=== PATIENT | female | born 1950 | race Caucasian/White ===

== ENCOUNTER 2018-04-05 13:13 | Inpatient (IN) ==
[2018-04-05] MEDS ORDERED: *HR* OxyCODONE/APAP 5/325 TABLET PO ONE (14:09)
--- NOTE | 2018-04-05 14:12 | Emergency Department Note ---
Disposition Clinical Impression: Fracture of hip Qualifiers: Encounter type: initial encounter Fracture type: closed Laterality: right Qualified Code(s): S72.001A - Fracture of unspecified part of neck of right femur, initial encounter for closed fracture Disposition: Admitted As Inpatient Condition: Good Time of Disposition: 20:00 Lower Extremity Injury HPI - General Chief Complaint: ED Extremity Injury, Lower Stated Complaint: R hip pain s/p fall Time Seen by Provider: 04/05/18 13:34 Source: patient Mode of arrival: EMS Limitations: no limitations Nursing Notes Reviewed: Yes Vital Signs Reviewed: Yes - History of Present Illness HPI Narrative: Patient reports a mechanical fall on her right hip while home at 10:30 AM. She also hit her head. No focal neurological signs or symptoms. No head or neck pain at this time. No chest pain or abdominal pain. Pain is worse with mov ement better with rest. pain is Sharp. Pt Subjective Complaint: hip injury Onset (ago): hour(s) Mechanism of Injury: blunt Context: fall Pain Scale: 4 - Related Data Home Medications Medication Instructions Recorded Confirmed Albuterol Sulfate [Proair Hfa] 2 puff IH Q4H PRN 01/30/16 04/05/18 Baclofen [Lioresal] 10 mg PO TID 01/30/16 04/05/18 Calcium Carb,Cit/D3/Phytostrol 1 tab PO DAILY 01/30/16 04/05/18 [Citracal D + Heart Health Tab] Cholecalciferol (D-3) [Vitamin D] 1,000 unit PO BID 01/30/16 04/05/18 Citalopram Hydrobromide [Celexa] 40 mg PO DAILY 01/30/16 04/05/18 Dalfampridine [Ampyra] 10 mg PO BID 01/30/16 04/05/18 Ibuprofen [Advil] 200 mg PO DAILY PRN 01/30/16 04/05/18 Metformin HCl [Metformin HCl ER] 500 mg PO BID 01/30/16 04/05/18 Multivitamin [Multivitamins] 1 tab PO DAILY 01/30/16 04/05/18 RX: Glimepiride [Amaryl] 4 mg PO BID 01/30/16 04/05/18 RX: Lovastatin 40 mg PO HS 01/30/16 04/05/18 RX: Propranolol HCl 80 mg PO BID 01/30/16 04/05/18 RX: Zolpidem [Ambien] 5 mg PO HS PRN 01/30/16 04/05/18 SUMAtriptan Succinate [Imitrex] 100 mg PO DAILY PRN 01/30/16 04/05/18 Allergies Allergy/AdvReac Type Severity Reaction Status Date / Time Cephalosporins Allergy Rash Verified 01/30/16 09:48 clindamycin Allergy Rash Verified 04/05/18 13:22 Penicillins Allergy Rash Verified 01/30/16 09:48 Sulfa (Sulfonamide Allergy Photosensit Verified 01/30/16 09:48 Antibiotics) ivity Constitutional: Denies: fever, chills, weakness, weight change Eyes: Denies: eye pain, eye discharge, vision change ENT ED: Denies: ear pain, throat pain, dental pain, hearing loss, epistaxis, congestion, dysphagia Cardiovascular: Denies: chest pain, palpitations, dyspnea on exertion, edema, syncope Respiratory: Denies: cough, dyspnea, wheezes, hemoptysis, stridor Gastrointestinal: Denies: abdominal pain, nausea, vomiting, diarrhea, constipation, hematemesis, melena, hematochezia Genitourinary: Denies: dysuria, frequency, hematuria, discharge Musculoskeletal: Reports: as per HPI, arthralgia. Denies: back pain, neck pain Integumentary: Denies: rash, abrasion, lesions Neurological: Denies: headache, weakness, numbness, paresthesias, confusion, abnormal gait, vertigo Psychiatric: Denies: anxiety, depression, suicidal thoughts, homicidal thoughts, auditory hallucinations, visual hallucinations Endocrine: Denies: fatigue Hematological/Lymphatic: Denies: easy bleeding, easy bruising Allergic/Immunologic: Denies: facial swelling, urticaria Past Medical History - Past Medical History Medical history: Reports: asthma, COPD Surgical history: Reports: appendectomy, hysterectomy Psychiatric history: Reports: no psych history - Social History Smoking Status: Current every day smoker Smokeless Tobacco Status: No Alcohol use: Reports: none Drug use: Reports: none Physical Exam - General Limitations: no limitations General appearance: alert - Head Head exam: atraumatic, normocephalic, normal inspection - Eye Eye exam: Present: normal appearance, PERRL, EOMI - Expanded Eye Exam Pupils: Left: reactive - ENT ENT exam: normal exam, normal oropharynx, mucous membranes moist - Expanded ENT Exam External ear exam: Present: normal external inspection Mouth exam: Present: normal external inspection Teeth exam: Present: normal inspection Throat exam: Present: normal inspection - Neck Neck exam: Present: normal inspection, full ROM, trachea midline - Chest Chest inspection: Present: normal inspection, symmetric chest wall rise - Respiratory Respiratory exam: Present: normal lung sounds bilaterally - Cardiovascular Cardiovascular exam: Present: regular rate, normal rhythm, normal heart sounds - Abdominal Exam Abdominal exam: Present: soft, Non-Tender. Absent: tenderness, distention, guarding, rebound, rigidity - Extremities Exam Extremities exam: Present: normal inspection, full ROM. Absent: tenderness, pedal edema - Expanded Upper Extremity Exam Shoulder exam: Present: normal inspection, full ROM Arm exam: Present: normal inspection, full ROM Elbow exam: Present: normal inspection, full ROM Forearm/Wrist exam: Present: normal inspection, full ROM Hand exam: Present: normal inspection, full ROM Vascular exam: Normal: capillary refill, radial pulse - Expanded Lower Extremity Exam Hip/Pelvis exam: Present: tenderness, swelling (Swelling and tenderness to the right lateral hip. Patient's leg is flexed and she is unable to straighten it. No neurovascular deficits noted in the lower extremities.) Upper leg exam: Present: normal inspection, full ROM Knee exam: Present: normal inspection, full ROM Lower leg exam: Present: normal inspection, full ROM Ankle exam: Present: normal inspection, full ROM Foot/toe exam: Present: normal inspection, full ROM Neurovascular/Tendon exam: Absent: motor deficit, sensory deficit, tendon deficit - Back Exam Back exam: Present: normal inspection, full ROM. Absent: tenderness - Neurological Exam Neurological exam: Present: alert, oriented X3 - Expanded Neurological Exam Patient oriented to: Present: person, place, time Coma Scale Eye Opening: Spontaneous Coma Scale Motor Response: Obeys Commands Coma Scale Verbal Response: Oriented Coma Scale Total: 15 - Psychiatric Psychiatric exam: Present: normal affect, normal mood - Skin Skin exam: Present: warm, dry, intact, normal color Course Vital Signs Temperature 99.0 F 04/05/18 13:15 Pulse Rate 78 04/05/18 13:15 Respiratory Rate 16 04/05/18 13:15 Blood Pressure 119/97 04/05/18 13:15 O2 Sat by Pulse Oximetry 97 04/05/18 13:15 Temperature 98.5 F 04/05/18 20:16 Pulse Rate 86 04/05/18 20:16 Respiratory Rate 12 04/05/18 20:16 Blood Pressure 119/72 04/05/18 20:16 O2 Sat by Pulse Oximetry 93 04/05/18 21:00 Oxygen Delivery Oxygen Delivery Nasal Cannula Extremity Injury, Lower - Lab Data Result diagrams: 04/05/18 14:25 04/05/18 14:25 Lab Results 04/05/18 04/05/18 04/05/18 Range/Units 14:25 14:25 16:05 WBC 23.0 H (4.3-11.1) K/mcL RBC 4.41 (3.82-4.97) M/mcL Hgb 13.6 (11.5-15.4) g/dL Hct 41.6 (35.3-44.9) % MCV 94.3 (83.0-100.0) fL MCH 30.8 (28.0-33.3) pg MCHC 32.7 (31.6-35.5) g/dL RDW 12.5 (11.5-14.5) % Plt Count 220 (140-400) K/mcL MPV 11.1 (9.4-12.4) fL Sodium 137 (136-145) mEq/L Potassium 4.1 (3.5-5.1) mEq/L Chloride 105 (98-107) mEq/L Carbon Dioxide 26 (23-29) mEq/L BUN 19 (8-23) mg/dL Creatinine 0.92 (0.60-1.20) mg/dL Est GFR ( Amer) > 60 (> 60) Est GFR (Non-Af Amer) > 60 (> 60) BUN/Creatinine Ratio 21 (6-26) Glucose 116 H (70-105) mg/dL POC Glucose (70-99) mg/dL Calculated Osmolality 287 (280-300) Calcium 10.0 (8.6-10.3) mg/dL Urine Color Yellow (Yellow) Urine Clarity Turbid A (Clear) Urine pH 5.5 (5.0-8.0) pH Units Ur Specific [place] 1.011 (1.010-1.025) Urine Protein 100 H (Neg-Trace) mg/dL Urine Glucose (UA) Normal (Normal) mg/dL Urine Ketones Negative (Negative) mg/dL Urine Blood Large H (Negative) Urine Nitrite Negative (Negative) Urine Bilirubin Negative (Negative) Urine Urobilinogen Normal (Normal) mg/dL Ur Leukocyte Esterase Large H (Negative) Urine Microscopic RBC 5-15 H (0-3) per hpf Urine Microscopic WBC TNTC H (0-3) per hpf Ur Squamous Epith Cells Many H (None-Few) per lpf Urine Bacteria Many H (None-Few) per hpf Hyaline Casts None Seen (None-Few) per lpf 04/05/18 Range/Units 17:09 WBC (4.3-11.1) K/mcL RBC (3.82-4.97) M/mcL Hgb (11.5-15.4) g/dL Hct (35.3-44.9) % MCV (83.0-100.0) fL MCH (28.0-33.3) pg MCHC (31.6-35.5) g/dL RDW (11.5-14.5) % Plt Count (140-400) K/mcL MPV (9.4-12.4) fL Sodium (136-145) mEq/L Potassium (3.5-5.1) mEq/L Chloride (98-107) mEq/L Carbon Dioxide (23-29) mEq/L BUN (8-23) mg/dL Creatinine (0.60-1.20) mg/dL Est GFR ( Amer) (> 60) Est GFR (Non-Af Amer) (> 60) BUN/Creatinine Ratio (6-26) Glucose (70-105) mg/dL POC Glucose 101 H (70-99) mg/dL Calculated Osmolality (280-300) Calcium (8.6-10.3) mg/dL Urine Color (Yellow) Urine Clarity (Clear) Urine pH (5.0-8.0) pH Units Ur Specific [place] (1.010-1.025) Urine Protein (Neg-Trace) mg/dL Urine Glucose (UA) (Normal) mg/dL Urine Ketones (Negative) mg/dL Urine Blood (Negative) Urine Nitrite (Negative) Urine Bilirubin (Negative) Urine Urobilinogen (Normal) mg/dL Ur Leukocyte Esterase (Negative) Urine Microscopic RBC (0-3) per hpf Urine Microscopic WBC (0-3) per hpf Ur Squamous Epith Cells (None-Few) per lpf Urine Bacteria (None-Few) per hpf Hyaline Casts (None-Few) per lpf
[2018-04-05 14:43] LABS: Hematocrit 41.6 % (35.3-44.9); Hemoglobin 13.6 g/dL (11.5-15.4); Mean Corpuscular HGB Conc 32.7 g/dL (31.6-35.5); Mean Corpuscular Hemoglobin 30.8 pg (28.0-33.3); Mean Corpuscular Volume 94.3 fL (83.0-100.0); Mean Platelet Volume 11.1 fL (9.4-12.4); Platelet Count 220 K/mcL (140-400); Red Blood Count 4.41 M/mcL (3.82-4.97); Red Cell Distribution Width 12.5 % (11.5-14.5)
[2018-04-05 14:58] LABS: BUN/Creatinine Ratio 21 (6-26); Blood Urea Nitrogen 19 mg/dL (8-23); Carbon Dioxide 26 mEq/L (23-29); Chloride 105 mEq/L (98-107); Glucose 116 mg/dL (70-105); Osmolality,Calculated 287 (280-300); Potassium 4.1 mEq/L (3.5-5.1); Sodium 137 mEq/L (136-145); eGFR For Non-African Americans > 60 (> 60)
[2018-04-05 16:16] LABS: Bilirubin,Urine Negative (Negative); Blood,Urine Large (Negative); Clarity,Urine Turbid (Clear); Color,Urine Yellow (Yellow); Glucose,Urine (UA) Normal (Normal); Ketones,Urine Negative (Negative); Leukocyte Esterase,Urine Large (Negative); Nitrite,Urine Negative (Negative); PH,Urine 5.5 pH Units (5.0-8.0); Protein,Urine 100 mg/dL (Neg-Trace); Specific Gravity,Urine 1.011 (1.010-1.025); Urobilinogen,Urine Normal (Normal)
[2018-04-05 16:17] LABS: Bacteria,Urine Many per hpf (None-Few); Hyaline Casts,Urine None Seen per lpf (None-Few); Squamous Epithelial Cell,Urine Many per lpf (None-Few); WBC,Urine TNTC per hpf (0-3)
--- NOTE | 2018-04-05 17:22 | Orthopedic Consult Note ---
Date of Encounter: 04/05/18 Time of Encounter: 17:12 History of Present Illness Chief complaint: Right hip pain HPI: Ms. Nunez is a 67 year old female who sustained an injury to her right hip in a mechanical fall at her home today. Patient had immediate right hip pain and was unable to weight-bear. She was brought to the emergency room and [facility] x-rays taken revealed evidence of a right femoral neck fracture. She admitted for further evaluation and management. Patient denies any other injuries. I reviewed the patient's medical record. Past medical history is significant for multiple sclerosis. Patient has multiple drug allergies. Examination reveals a pleasant 67-year-old woman in minor distress while lying in the hospital bed. Right lower extremity is shortened and externally rotated. Pain is elicited with any attempts at examination. Laboratory data includes a hemoglobin of 13.6 with a white blood cell count of 23. Urine is turbid with positive leukocyte esterase and many bacteria. Patient has a vaginal prolapse with difficulty urinating and does require catheterization frequently. X-rays reveals a displaced right femoral neck fracture in the subcapital region. Impression: Displaced right femoral neck fracture Recommendation: Discussed with the patient and I recommend surgical intervention in the form of a cemented hemiarthroplasty of the right hip. This would eliminate any potential for limited ambulation, delayed healing or nonunion and possibility of an avascular necrosis process. These were all be risks of attempting to save the hip with reduction and fixation. In light of the patient's neuromuscular disease this is also better option as would allow her to begin immediate full weightbearing ambulation though she would be required to maintain hip precautions for a period of time. Appears the patient has a chronic urinary tract infection, would recommend start of empiric antibiotics per the hospitalists. We will utilize vancomycin for surgical prophylaxis. Discussed the surgical procedure as well as potential risks and complications at length with the patient and family. They were all in agreement with the proposed plan. Have scheduled her for surgery tomorrow. Thank you very much for allowing me to seen care for Mrs. Nunez. Sincerely, Raymon Amin,DO Past Med Surg Social Fam HX - Past Medical History Medical history: asthma, COPD Additional medical history: Liver Disease Psychiatric history: no psych history - Past Surgical History Surgical History: appendectomy, hysterectomy Additional surgical history: decortication of lungs, ovarian cyst, lymph node removal, D&C - Social History Smoking Status: Current every day smoker Smokeless Tobacco Status: No Alcohol use: none Drug use: none Medications and Allergies Albuterol Sulfate [Proair Hfa] 2 puff IH Q4H PRN 01/30/16 [History] Baclofen [Lioresal] 10 mg PO TID 01/30/16 [History] Calcium Carb,Cit/D3/Phytostrol [Citracal D + Heart Health Tab] 1 tab PO DAILY 01/30/16 [History] Cholecalciferol (D-3) [Vitamin D] 1,000 unit PO BID 01/30/16 [History] Citalopram Hydrobromide [Celexa] 40 mg PO DAILY 01/30/16 [History] Dalfampridine [Ampyra] 10 mg PO BID 01/30/16 [History] Glimepiride [Amaryl] 4 mg PO BID 01/30/16 [History] Ibuprofen [Advil] 200 mg PO DAILY PRN 01/30/16 [History] Lovastatin 40 mg PO HS 01/30/16 [History] Metformin HCl [Metformin HCl ER] 500 mg PO BID 01/30/16 [History] Multivitamin [Multivitamins] 1 tab PO DAILY 01/30/16 [History] Propranolol HCl 80 mg PO BID 01/30/16 [History] SUMAtriptan Succinate [Imitrex] 100 mg PO DAILY PRN 01/30/16 [History] Zolpidem [Ambien] 5 mg PO HS PRN 01/30/16 [History] Allergy/AdvReac Type Severity Reaction Status Date / Time Cephalosporins Allergy Rash Verified 01/30/16 09:48 clindamycin Allergy Rash Verified 04/05/18 13:22 Penicillins Allergy Rash Verified 01/30/16 09:48 Sulfa (Sulfonamide Allergy Photosensit Verified 01/30/16 09:48 Antibiotics) ivity All Systems Reviewed: The remainder of the systems were reviewed and are negative Physical Exam - Constitutional Vitals: Temp Pulse Resp BP Pulse Ox 98.8 F 85 17 132/76 90 04/05/18 16:56 04/05/18 16:56 04/05/18 16:56 04/05/18 16:56 04/05/18 16:56 Results - Labs Result Diagrams: 04/05/18 14:25 04/05/18 14:25 Labs: Abnormal lab results WBC 23.0 K/mcL (4.3-11.1) H 04/05/18 14:25 Glucose 116 mg/dL (70-105) H 04/05/18 14:25 Urine Clarity Turbid (Clear) A 04/05/18 16:05 Urine Protein 100 mg/dL (Neg-Trace) H 04/05/18 16:05 Urine Blood Large (Negative) H 04/05/18 16:05 Ur Leukocyte Esterase Large (Negative) H 04/05/18 16:05 Urine Microscopic RBC 5-15 per hpf (0-3) H 04/05/18 16:05 Urine Microscopic WBC TNTC per hpf (0-3) H 04/05/18 16:05 Ur Squamous Epith Cells Many per lpf (None-Few) H 04/05/18 16:05 Urine Bacteria Many per hpf (None-Few) H 04/05/18 16:05 H & H 04/05/18 Range/Units 14:25 Hgb 13.6 (11.5-15.4) g/dL Hct 41.6 (35.3-44.9) % All other labs normal. - Diagnostic results Hip AP/Lateral x-ray: image reviewed Consult Discharge Plan - Plan Referrals: Pieter Moore MD [Primary Care Provider] -
[2018-04-05] MEDS ORDERED: Ketorolac 30 MG/ML VIAL IVP ONE (17:38)
[2018-04-05] MEDS ORDERED: *HR* HYDROcodone/Acet 5/325 mg TABLET PO PRN (17:39)
--- NOTE | 2018-04-05 18:10 | Internal Med History&Physical ---
Date of Encounter: 04/05/18 Time of Encounter: 17:00 Internal Medicine - H&P: HPI Chief complaint: Right hip pain Admitted From: Home Plans for Post Hospital Care: Home History of present illness: Patient is a 67-year-old female with past medical history significant for diabetes, hyperlipidemia and mood disorder and multiple sclerosis with frequent falls who presents to the ER on 04/05/18 after right hip pain after mechanical fall. She reports after getting up this morning and walking to get her glasses she turned to her right and lost her balance falling on her right hip with immediate sharp pain. Patient was unable to ambulate and family assisting her to car to bring her into the ER for evaluation. In the ER, imaging showed subcapital right femoral neck fracture appears to be pathologic, concerning for metastatic disease; head CT with no acute intracranial abnormalities. Patient was also noted to have significant leukocytosis on labs with WBC of 23; urinalysis noted to have large leukoesterase , white blood cells too numerous to count and many bacteria. Patient will be admitted to the medical surgical floor for surgical repair of right femoral neck fracture in addition to management for urinary tract infe ction Past Med Surg Social Fam HX - Past Medical History Medical history: asthma, COPD Additional medical history: Liver Disease Psychiatric history: no psych history - Past Surgical History Surgical History: appendectomy, hysterectomy Additional surgical history: decortication of lungs, ovarian cyst, lymph node removal, D&C - Social History Smoking Status: Current every day smoker Packs per day: 1 Smokeless Tobacco Status: No Alcohol use: none Drug use: none - Family History Mother Hx Family Cancer: Yes Father Hx Family Cardiac Disorders: Yes Hx Family Cancer: Yes - Additional Family History Additional family history: Reviewed and noncontributory Internal Medicine - H&P: Meds Albuterol Sulfate [Proair Hfa] 2 puff IH Q4H PRN 01/30/16 [History] Baclofen [Lioresal] 10 mg PO TID 01/30/16 [History] Calcium Carb,Cit/D3/Phytostrol [Citracal D + Heart Health Tab] 1 tab PO DAILY 01/30/16 [History] Cholecalciferol (D-3) [Vitamin D] 1,000 unit PO BID 01/30/16 [History] Citalopram Hydrobromide [Celexa] 40 mg PO DAILY 01/30/16 [History] Dalfampridine [Ampyra] 10 mg PO BID 01/30/16 [History] Glimepiride [Amaryl] 4 mg PO BID 01/30/16 [History] Ibuprofen [Advil] 200 mg PO DAILY PRN 01/30/16 [History] Lovastatin 40 mg PO HS 01/30/16 [History] Metformin HCl [Metformin HCl ER] 500 mg PO BID 01/30/16 [History] Multivitamin [Multivitamins] 1 tab PO DAILY 01/30/16 [History] Propranolol HCl 80 mg PO BID 01/30/16 [History] SUMAtriptan Succinate [Imitrex] 100 mg PO DAILY PRN 01/30/16 [History] Zolpidem [Ambien] 5 mg PO HS PRN 01/30/16 [History] 3 Allergy/AdvReac Type Severity Reaction Status Date / Time Cephalosporins Allergy Rash Verified 01/30/16 09:48 clindamycin Allergy Rash Verified 04/05/18 13:22 Penicillins Allergy Rash Verified 01/30/16 09:48 Sulfa (Sulfonamide Allergy Photosensit Verified 01/30/16 09:48 Antibiotics) ivity All Systems PM: A 10-system review of systems was performed and is negative for pertinent findings except as documented above in the HPI. - Constitutional Vitals: Temp Pulse Resp BP Pulse Ox 98.8 F 85 17 132/76 90 04/05/18 16:56 04/05/18 16:56 04/05/18 16:56 04/05/18 16:56 04/05/18 16:56 Exam: General appearance: Present: A&O X 3, no acute distress - Head Head exam: Present: normocephalic - Eye Eye exam: Present: normal appearance - ENT ENT exam: Present: mucous membranes moist - Respiratory Respiratory exam: Present: CTAB. Absent: accessory muscle use, rales, rhonchi, wheezes - Cardiovascular Cardiovascular exam: Present: RRR, +S1, +S2. Absent: diastolic murmur, gallop, rubs, systolic murmur - GI/Abdominal GI/Abdominal exam: Present: normal bowel sounds, soft, no peritoneal signs. Absent: distended, tenderness - Extremities Exam Extremities exam: Absent: pedal edema - Neurological Exam Neurological exam: Present: alert, oriented X3, no focal deficits. Absent: altered - Psychiatric Psychiatric exam: -normal mood Skin exam: -normal color Internal Med - H&P Results - Labs CBC & Chem 7: 04/05/18 14:25 04/05/18 14:25 Labs: Short CBC 04/05/18 Range/Units 14:25 WBC 23.0 H (4.3-11.1) K/mcL Hgb 13.6 (11.5-15.4) g/dL Hct 41.6 (35.3-44.9) % Plt Count 220 (140-400) K/mcL BMP 04/05/18 14:25 Sodium 137 Potassium 4.1 Chloride 105 Carbon Dioxide 26 BUN 19 Creatinine 0.92 Glucose 116 H Calcium 10.0 Urine 04/05/18 Range/Units 16:05 Urine Color Yellow (Yellow) Urine Clarity Turbid A (Clear) Urine pH 5.5 (5.0-8.0) pH Units Ur Specific [place] 1.011 (1.010-1.025) Urine Protein 100 H (Neg-Trace) mg/dL Urine Glucose (UA) Normal (Normal) mg/dL - Impressions ITS Impressions Hip X-Ray 04/05/18 14:08 IMPRESSION: Subcapital right femoral neck fracture appears to be pathologic, concerning for metastatic disease. D/ / Jama Joyner / Jama Joyner Interpreting Provider: Jama Joyner Head CT 04/05/18 14:13 IMPRESSION: No acute intracranial abnormality. D/ / Salvador Hernandez MD / Salvador Hernandez MD Interpreting Provider: Salvador Hernandez MD Chest X-Ray 04/05/18 15:42 IMPRESSION: Minimal left basilar atelectasis or scarring. D/ / Fernando Steven MD / Fernando Steven MD Interpreting Provider: Fernando Steven MD - Assessment and plan (1) Fracture of femoral neck, right Current Visit: Yes Status: Acute Assessment and plan: In the ER, imaging showed subcapital right femoral neck fracture appears to be pathologic, concerning for metastatic disease Orthopedics consult with recommendations for surgical intervention in the form of a cemented hemiarthroplasty of the right hip. Qualifiers: Encounter type: initial encounter Qualified Code(s): S72.001A - Fracture of unspecified part of neck of right femur, initial encounter for closed fracture (2) UTI (urinary tract infection) Current Visit: Yes Status: Acute Assessment and plan: Patient was also noted to have significant leukocytosis on labs with WBC of 23 Urinalysis noted to have large leukoesterase , white blood cells too numerous to count and many bacteria. Will start patient on IV Cipro Qualifiers: Encounter type: initial encounter Qualified Code(s): T83.510A - Infection and inflammatory reaction due to cystostomy catheter, initial encounter; N39.0 - Urinary tract infection, site not specified (3) Multiple sclerosis Current Visit: Yes Status: Acute Assessment and plan: Patient not in exacerbation Continue to monitor (4) Diabetes Current Visit: Yes Status: Acute Assessment and plan: Will cover with sliding scale insulin Qualifiers: Chronic kidney disease stage: unspecified stage Qualified Code(s): E08.22 - Diabetes mellitus due to underlying condition with diabetic chronic kidney disease; 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
[2018-04-05] MEDS ORDERED: Naloxone 0.4 MG/ML INJ IVP PRN (18:23)
[2018-04-05] MEDS ORDERED: Ketorolac 30 MG/ML VIAL IVP PRN (18:39)
[2018-04-05] MEDS ORDERED: *HR* Heparin 5,000 UNIT/ML VIAL SQ ONE (19:00)
[2018-04-06] MEDS ORDERED: Lidocaine -MPF 2% 2 ML VIAL ONE (07:19)
[2018-04-06] MEDS ORDERED: Dexamethasone 4 MG/ML VIAL ONE (07:19)
[2018-04-06] MEDS ORDERED: *HR* Succinylcholine 200 MG/10 ML VIAL IVP ONE (07:19)
[2018-04-06] MEDS ORDERED: Ondansetron 4 MG/2 ML VIAL ONE (07:19)
[2018-04-06] MEDS ORDERED: *HR* FentaNYL (PF) 100 MCG/2 ML VIAL ONE (07:20)
[2018-04-06] MEDS ORDERED: *HR* Propofol 200 MG/20 ML VIAL IVP ONE (07:20)
[2018-04-06 07:23] LABS: Basophils # 0.1 K/mcL (0.0-0.2); Basophils % 0.6 %; Eosinophils # 0.7 K/mcL (0.0-0.6); Eosinophils % 4.6 %; Hematocrit 37.6 % (35.3-44.9); Hemoglobin 12.4 g/dL (11.5-15.4); Immature Granulocytes % 0.6 % (0-4); Lymphocytes # 2.1 K/mcL (0.6-4.6); Lymphocytes % 13.7 %; Mean Corpuscular Hemoglobin 30.9 pg (28.0-33.3); Mean Corpuscular Volume 93.8 fL (83.0-100.0); Mean Platelet Volume 11.4 fL (9.4-12.4); Monocytes % 6.4 %; Neutrophils # 11.2 K/mcL (1.6-8.9); Platelet Count 192 K/mcL (140-400); Red Blood Count 4.01 M/mcL (3.82-4.97); Red Cell Distribution Width 12.6 % (11.5-14.5); Segmented Neutrophils % 74.1 %
[2018-04-06 07:31] LABS: INR 1.1; Prothrombin Time 12.7 Seconds (9.4-12.1)
--- NOTE | 2018-04-06 07:37 | Anesthesia Evaluation PreOp ---
Date of Encounter: 04/06/18 Time of Encounter: 07:20 - Past History Planned Operation: R-Henri Hip Cardiac History: Hyperlipidemia Pulmonary History: Smoker, Asthma, COPD [facility] History: Other (Multiple Sclerosis w/ frequent falls. Anxiety/Depression) Other Medical History: Hepatic (Liver Dz [per H&P] unknown etiology), Diabetes Type II Anesthesia History: No Prior Anesthetic Complications, Past Anesthesia (Appy, Hyster, Lung decortication, ovarian cyst, D&C,) Alcohol Use: none Drug use: none Medications and Allergies Albuterol Sulfate [Proair Hfa] 2 puff IH Q4H PRN 01/30/16 [History] Baclofen [Lioresal] 10 mg PO TID 01/30/16 [History] Calcium Carb,Cit/D3/Phytostrol [Citracal D + Heart Health Tab] 1 tab PO DAILY 01/30/16 [History] Cholecalciferol (D-3) [Vitamin D] 1,000 unit PO BID 01/30/16 [History] Citalopram Hydrobromide [Celexa] 40 mg PO DAILY 01/30/16 [History] Dalfampridine [Ampyra] 10 mg PO BID 01/30/16 [History] Glimepiride [Amaryl] 4 mg PO BID 01/30/16 [History] Ibuprofen [Advil] 200 mg PO DAILY PRN 01/30/16 [History] Lovastatin 40 mg PO HS 01/30/16 [History] Metformin HCl [Metformin HCl ER] 500 mg PO BID 01/30/16 [History] Multivitamin [Multivitamins] 1 tab PO DAILY 01/30/16 [History] Propranolol HCl 80 mg PO BID 01/30/16 [History] SUMAtriptan Succinate [Imitrex] 100 mg PO DAILY PRN 01/30/16 [History] Zolpidem [Ambien] 5 mg PO HS PRN 01/30/16 [History] Allergy/AdvReac Type Severity Reaction Status Date / Time Cephalosporins Allergy Rash Verified 01/30/16 09:48 clindamycin Allergy Rash Verified 04/05/18 13:22 Penicillins Allergy Rash Verified 01/30/16 09:48 Sulfa (Sulfonamide Allergy Photosensit Verified 01/30/16 09:48 Antibiotics) ivity - Meds/Allergy Pre-op Review Medications Reviewed: Yes Allergies Reviewed: Yes Beta Blockers on Current Med List: Yes (Propanolol) If Beta Blockers taken, Date/Time (Last Dose taken): 04/06/2018 @ 0011 Anesthesia Results - Labs 04/06/18 06:54 04/06/18 06:54 Laboratory Results Impressions Hip X-Ray 04/05/18 14:08 IMPRESSION: Subcapital right femoral neck fracture appears to be pathologic, concerning for metastatic disease. D/ / Jama Joyner / Jama Joyner Interpreting Provider: Jama Joyner Head CT 04/05/18 14:13 IMPRESSION: No acute intracranial abnormality. D/ / Salvador Hernandez MD / Salvador Hernandez MD Interpreting Provider: Salvador Hernandez MD Chest X-Ray 04/05/18 15:42 IMPRESSION: Minimal left basilar atelectasis or scarring. D/ / Fernando Steven MD / Fernando Steven MD Interpreting Provider: Fernando Steven MD - Imaging EKG: image reviewed (81bpm SR, LAE considered) Anesthesia Exam Vital Signs Temp Pulse Pulse Resp BP Pulse Ox 04/06/18 04:29 98.8 F 84 14 130/64 93 04/06/18 00:00 99.1 F 91 14 129/61 93 04/05/18 21:00 93 04/05/18 20:16 98.5 F 86 12 119/72 93 04/05/18 16:56 98.8 F 85 17 132/76 90 04/05/18 16:23 16 136/75 04/05/18 15:20 87 04/05/18 13:15 99.0 F 78 16 119/97 97 Intake and Output 04/05/18 04/05/18 04/06/18 15:59 23:59 07:59 Intake Total 0 / 0 200 / 200 Output Total 400 / 400 300 / 300 Balance -400 / -400 -100 / -100 Intake: IV Fluids 200 / 200 Cipro Premix 400 MG/200 ML 400 200 / 200 mg In 200 ml @ 200 mls/hr IVPB Q12HR [facility] Rx#:[id number] Oral 0 / 0 0 / 0 Output: Catheter 400 / 400 300 / 300 Other: Weight 77.111 kg 75 kg 74.8 kg Blood Glucose* 101 127 Patient Weight 04/06/18 23:59 Weight 74.8 kg Height: 5'9" Weight: 164# BMI = 24 NPO (# of Hours): MNOc - HEENT Pupil (Motor): Pupils equal, EOMI Mallampati: II Teeth: Normal Oral Opening: Greater than 3 - [facility] LOC: Oriented [facility] Motor: Deficit RUE (MS related weakness throughout), Deficit LUE, Deficit RLE, Deficit LLE, Deficit Face [facility] Sensory: Normal: RUE, LUE, LLE, Face, Deficit: RLE - Cardiac Rhythm: Regular Murmur: None JVD: No - Pulmonary Respiratory Effort: Symmetrical Anesthesia Assess/Plan ASA Score: 3 (MS, HTN, Anxiety/Depression, active UTI this admission) Level of consciousness: Cooperative, Oriented, Tranquil Anesthetic Plan: General Monitoring Plan: Standard Monitors Recovery Plan: PACU Anes Supervising Prov Stmt: PT seen/evaluated, R&B Discussed, questions answered and consent obtained. Yaakov Greer MD
[2018-04-06 07:44] LABS: BUN/Creatinine Ratio 16 (6-26); Blood Urea Nitrogen 13 mg/dL (8-23); Calcium 9.2 mg/dL (8.6-10.3); Carbon Dioxide 27 mEq/L (23-29); Chloride 103 mEq/L (98-107); Glucose 181 mg/dL (70-105); Osmolality,Calculated 285 (280-300); Potassium 4.1 mEq/L (3.5-5.1); Sodium 135 mEq/L (136-145); eGFR For Non-African Americans > 60 (> 60)
[2018-04-06] MEDS ORDERED: Pregabalin 75 MG CAPSULE ONE (07:44)
[2018-04-06] MEDS ORDERED: Ketamine *HR* 500 MG/10 ML MDV ONE (07:51)
[2018-04-06] MEDS ORDERED: Acetaminophen IV 1,000 MG/100 ML INFUS..BTL ONE (07:52)
[2018-04-06] MEDS ORDERED: Albuterol 2.5 MG/3 ML NEBULIZER IH ONE (08:08)
[2018-04-06] MEDS ORDERED: Albuterol 2.5 MG/3 ML NEBULIZER ONE (08:13)
[2018-04-06] MEDS ORDERED: *HR* PHENYLEPHRINE 1,000 MCG/10 ML SYRINGE IVP ONE (08:54)
[2018-04-06] MEDS ORDERED: DALFAMPRIDINE 10 MG PO SCH (09:00)
[2018-04-06] MEDS ORDERED: Baclofen 10 MG TABLET PO SCH (09:00)
[2018-04-06] MEDS ORDERED: EPHEDrine 50 MG/ML VIAL ONE (09:27)
--- NOTE | 2018-04-06 09:32 | Internal Med Progress Note ---
Hospitalist Progress Note - Encounter Date of Encounter: 04/06/18 Time of Encounter: 11:00 - Subjective Interval History: Patient is a 67-year-old female with past medical history significant for multiple sclerosis with frequent falls who presents to the ER on 04/05/18 after right hip pain after mechanical fall. Orthopedics consult with recommendations for surgical intervention in the form of a cemented hemiarthroplasty of the right hip later today Patient also noted to have leukocytosis with pyuria on urinalysis and started on IV antibiotics - Exam Vitals: Temp Pulse Resp BP Pulse Ox 98.8 F 84 14 130/64 93 04/06/18 04:29 04/06/18 04:29 04/06/18 04:29 04/06/18 04:29 04/06/18 04:29 Exam: Gen.: Nonacute distress, alert and oriented 3 ENT: Mucosal membranes moist Respiratory: Lungs are clear to auscultation bilaterally without any wheezing rhonchi or rales Cardiovascular: Normal S1 and S2 regular rate rhythm no murmurs rubs or gallops Abdomen: Soft, nontender and nondistended with positive bowel sounds Extremities: No lower extremity edema Skin: Normal color - Assessment and Plan (1) Fracture of femoral neck, right Current Visit: Yes Status: Acute Assessment and Plan: In the ER, imaging showed subcapital right femoral neck fracture appears to be pathologic, concerning for metastatic disease Orthopedics consult with recommendations for surgical intervention in the form of a cemented hemiarthroplasty of the right hip for later today (2) UTI (urinary tract infection) Current Visit: Yes Status: Acute Assessment and Plan: Patient was also noted to have significant leukocytosis on labs with WBC of 23 o n admission and this morning has improved to 10.1 Urinalysis noted to have large leukoesterase , white blood cells too numerous to count and many bacteria. Will continue day 2 of IV Cipro (3) Multiple sclerosis Current Visit: Yes Status: Acute Assessment and Plan: Patient not in exacerbation Continue to monitor (4) Diabetes Current Visit: Yes Status: Acute Assessment and Plan: Will cover with sliding scale insulin (5) HLD (hyperlipidemia) Current Visit: Yes Status: Acute Assessment and Plan: Continue statin DVT Prophylaxis: Lovenox subcutaneous - Time Spent with Patient Total time spent is greater than 50% in coordination of care (as documented) at patient's floor/unit and/or counseling patient: Internal Medicine: Result - Labs CBC & Chem 7: 04/06/18 06:54 04/06/18 06:54 Labs: Short CBC 04/05/18 04/06/18 Range/Units 14:25 06:54 WBC 23.0 H 15.1 H (4.3-11.1) K/mcL Hgb 13.6 12.4 (11.5-15.4) g/dL Hct 41.6 37.6 (35.3-44.9) % Plt Count 220 192 (140-400) K/mcL Neutrophils # 11.2 H (1.6-8.9) K/mcL BMP 04/05/18 04/06/18 14:25 06:54 Sodium 137 135 L Potassium 4.1 4.1 Chloride 105 103 Carbon Dioxide 26 27 BUN 19 13 Creatinine 0.92 0.80 Glucose 116 H 181 H Calcium 10.0 9.2 Urine 04/05/18 Range/Units 16:05 Urine Color Yellow (Yellow) Urine Clarity Turbid A (Clear) Urine pH 5.5 (5.0-8.0) pH Units Ur Specific [place] 1.011 (1.010-1.025) Urine Protein 100 H (Neg-Trace) mg/dL Urine Glucose (UA) Normal (Normal) mg/dL - ABG Interpretation ABG results: PT/INR, D-dimer PT 12.7 Seconds (9.4-12.1) H 04/06/18 06:54 - Impressions Impressions Hip X-Ray 04/05/18 14:08 IMPRESSION: Subcapital right femoral neck fracture appears to be pathologic, concerning for metastatic disease. D/ / Jama Joyner / Jama Joyner Interpreting Provider: Jama Joyner Head CT 04/05/18 14:13 IMPRESSION: No acute intracranial abnormality. D/ / Salvador Hernandez MD / Salvador Hernandez MD Interpreting Provider: Salvador Hernandez MD Chest X-Ray 04/05/18 15:42 IMPRESSION: Minimal left basilar atelectasis or scarring. D/ / Fernando Steven MD / Fernando Steven MD Interpreting Provider: Fernando Steven MD Consult Discharge Plan - Plan Referrals: Pieter Moore MD [Primary Care Provider] - (1) Fracture of femoral neck, right Qualifiers: Encounter type: initial encounter Qualified Code(s): S72.001A - Fracture of unspecified part of neck of right femur, initial encounter for closed fracture (2) UTI (urinary tract infection) Qualifiers: Encounter type: initial encounter Qualified Code(s): T83.510A - Infection and inflammatory reaction due to cystostomy catheter, initial encounter; N39.0 - Urinary tract infection, site not specified (4) Diabetes Qualifiers: Chronic kidney disease stage: unspecified stage (5) HLD (hyperlipidemia) Qualifiers: Hyperlipidemia type: unspecified Qualified Code(s): E78.5 - Hyperlipidemia, unspecified
--- NOTE | 2018-04-06 11:32 | Operative Note ---
Date of procedure: 04/06/18 Pre-op diagnosis: Displaced right femoral neck fracture Post-op diagnosis: same Procedure: Cemented hemiarthroplasty right hip Implants: Cemented Addy size 12 LD/FX femoral stem with a 12 mm distal centralizer and a neutral adapter with a 48 mm unipolar endoprosthesis Complications: None Anesthesia: MCKAYA Surgeon: Raymon Amin Was there an tv production assistant present: No Estimated blood loss (cc): 200 Specimen: Femoral head Condition: stable Disposition: PACU Procedure in Detail: Gross findings: Preoperative x-rays revealed a displaced subcapital type fracture of the right proximal femur. Radiologist interpretation was possible pathologic fracture. Intraoperative findings revealed a marked amount of hematoma in the subcutaneous tissue and findings consistent with an acute traumatic femoral neck fracture without signs of pathologic process although and some diminished bone quality. A cemented hemiarthroplasty was performed without complicating features. After placement of the prosthesis a stable hip was noted. Procedure: Patient is taken the operating room and while on the hospital bed was administered general anesthesia. After adequate level of anesthesia was obtained, the patient was transferred to the operating table, and placed in a lateral recumbent position with right side up. She was stabilized with the lateral hip stabilizing system with all pressure points well-padded. Right hip was now prepped and draped in normal standard fashion for surgery. A right lateral hip incision was created. Dissection was carried through the subcutaneous tissues down the level of fascia. Marked amount of clot and fracture and soft tissue hematoma was encountered and evacuated. Fascia isidro was exposed and cleared length the incision. This was then opened the length of the incision and retractor was placed maintaining exposure. Fatty atrophy of muscle was noted. At this time the anterior abductors were taken down off the trochanter in a subperiosteal manner and tagged with #2 FiberWire suture for traction of later repair. Capsule was now taken down and superior capsulotomy was made up the level of the acetabulum. Fracture hematoma was encountered and evacuated. Femoral neck osteotomy was made. Femoral head was now removed from the acetabulum and measured to approximately 47 and 48. Acetabulum was now cleaned of clot and debris with mechanical debridement and pulsatile lavage. The acetabulum was now sized, a 48 mm was selected. Attention was turned to the femur. Box osteotome was utilized to open up the medial trochanter T-handled reamers passed on the femoral canal. The canal was now sequentially rasped up to and including a size 13. The rasp was seated and the calcar was reamed. Trialing was now performed and a neutral neck length was appropriate. All trial components are now removed. Cement restrictor was placed distal. Canal was now irrigated with pulsatile lavage with a femoral brush and then dried with a combination of suction and sponges. Cement was mixing the appropriate time the cement was instilled into the femur in a retrograde manner. The assembled stem and centralizer then placed into the cement and impacted in a neutral position until the collar sat firmly on the medial femoral calcar. Excess cement was trimmed away. Cement was allowed to fully harden. Beatty taper on the stem was now cleaned and dried and the neutral adapter and head were then placed and impacted with 3 sharp blows of the mallet. Final washout of the hip was performed followed by reduction with a stable excellent function reduction noted. Attention was turned to closure. Capsulotomy was closed with #2 FiberWire. Abductors then repaired to the trochanter with previously placed #2 FiberWire and reinforced with running #2 Quill. Fascia was closed with running #2 FiberWire followed by running #2 Quill. Deep subtendinous tissue was closed with running 0 undyed Vicryl followed by medius obtained his tissue approximation with multiple inverted interrupted 2-0 undyed Vicryl and then skin approximation with a running septic stitch of 3-0 strata fix and then skin glue and operative foam. Patient was now placed into an abduction pillow on a operative table. Patient was transferred to the hospital bed. Patient was now awakened from anesthesia, sedated and transported to the postanesthesia care unit in stable and satisfactory condition. All sponge needle evidence for counts are correct. Femoral head was sent for pathology due to the radiologist's interpretation.
[2018-04-06] MEDS ORDERED: Ketorolac 30 MG/ML VIAL IVP PRN (11:41)
[2018-04-06] MEDS ORDERED: Naloxone 0.4 MG/ML INJ IVP PRN (11:41)
--- NOTE | 2018-04-06 15:45 | Anesthesia Evaluation Post Op ---
Date of Encounter: 04/06/18 Time of Encounter: 11:30 - Vital Signs Vital Signs: Vital Signs Temp Pulse Resp BP Pulse Ox 04/06/18 11:48 97.3 F L 78 14 112/69 90 04/06/18 11:26 97.7 F 80 18 111/55 94 04/06/18 11:16 75 14 110/55 92 04/06/18 11:06 75 14 108/49 92 04/06/18 11:01 78 16 105/51 94 04/06/18 10:56 99.1 F 79 16 119/45 98 Intake and Output 04/05/18 04/06/18 04/06/18 23:59 07:59 15:59 Intake Total 0 / 0 200 / 200 Output Total 400 / 400 300 / 300 350 / 350 Balance -400 / -400 -100 / -100 -350 / -350 Intake: IV Fluids 200 / 200 Cipro Premix 400 MG/200 ML 400 200 / 200 mg In 200 ml @ 200 mls/hr IVPB Q12HR [facility] Rx#:[id number] Oral 0 / 0 0 / 0 Output: Estimated Blood Loss 200 / 200 Urine Amount (Catheter) 150 / 150 Catheter 400 / 400 300 / 300 Other: Weight 75 kg 74.8 kg Blood Glucose* 101 127 155 Patient Weight 04/06/18 23:59 Weight 74.8 kg - Lungs Lungs: Clear Ascult./Percussion - Airway Airway: Non-obstructed - Cardiovascular Regular Rate - Mental Status Mental Status: Alert & Oriented, Answers Appropriately - Pain Pain Scale: 0 Pain Scale used: Numeric (1 - 10) - Nausea Vomiting Nausea Vomiting: Not Present - Hydration Hydration: Tolerates oral liquids - Discharge PostOp Status: Transfer Patient to floor Anes Supervising Prov Stmt: Pt seen/evaluated, VSS and has met criteria for discharge to home. - MD Percy
[2018-04-06] MEDS: Baclofen 10 MG TABLET PO SCH ×2 (16:04→21:23)
[2018-04-06] MEDS: *HR* HYDROcodone/Acet 5/325 mg TABLET PO PRN (16:16)
[2018-04-06] MEDS ORDERED: *HR* Dextrose 50 % in Water (Syg) 50 ML SYRINGE IVP PRN (16:22)
[2018-04-06] MEDS ORDERED: D5% in Water 1,000 ML IVC PRN (16:22)
[2018-04-06] MEDS ORDERED: Dextrose Gel 15 GM/37.5 ML TUBE PO PRN ×2 (16:22)
[2018-04-06] MEDS: *HR* Enoxaparin 30 MG/0.3 ML SYRINGE SQ SCH (17:34)
[2018-04-06] MEDS: Insulin LISPRO 300 UNITS/3 ML VIAL SQ SCH ×2 (17:35→21:23)
[2018-04-06] MEDS: DALFAMPRIDINE 10 MG PO SCH (23:12)
[2018-04-07] MEDS: *HR* Enoxaparin 30 MG/0.3 ML SYRINGE SQ SCH ×2 (05:15→17:45)
[2018-04-07] MEDS: *HR* HYDROcodone/Acet 5/325 mg TABLET PO PRN (06:47)
--- NOTE | 2018-04-07 08:22 | Internal Med Progress Note ---
Hospitalist Progress Note - Encounter Date of Encounter: 04/07/18 Time of Encounter: 11:00 - Subjective Interval History: Patient is a 67-year-old female with past medical history significant for multiple sclerosis with frequent falls who presents to the ER on 04/05/18 after right hip pain after mechanical fall. Patient is POD#1 Cemented hemiarthroplasty right hip - Exam Vitals: Temp Pulse Resp BP Pulse Ox 97.7 F 74 16 105/52 94 04/07/18 07:11 04/07/18 07:11 04/07/18 07:11 04/07/18 07:11 04/07/18 07:11 Exam: Gen.: Nonacute distress, alert and oriented 3 ENT: Mucosal membranes moist Respiratory: Lungs are clear to auscultation bilaterally without any wheezing rhonchi or rales Cardiovascular: Normal S1 and S2 regular rate rhythm no murmurs rubs or gallops Abdomen: Soft, nontender and nondistended with positive bowel sounds Extremities: No lower extremity edema Skin: Normal color - Assessment and Plan (1) Fracture of femoral neck, right Current Visit: Yes Status: Acute Assessment and Plan: On imaging patient found to have subcapital right femoral neck fracture appears to be pathologic, concerning for metastatic disease Patient now POD#1 cemented hemiarthroplasty of the right hip PT/OT consulted for recommendations for placement (2) UTI (urinary tract infection) Current Visit: Yes Status: Acute Assessment and Plan: Patient was also noted to have significant leukocytosis on labs with WBC of 23 on admission and had improved to 15.1 yesterday Urinalysis noted to have large leukoesterase , white blood cells too numerous to count and many bacteria. Will continue day 3 of IV Cipro (3) Multiple sclerosis Current Visit: Yes Status: Acute Assessment and Plan: Patient not in exacerbation Continue to monitor (4) Diabetes Current Visit: Yes Status: Acute Assessment and Plan: Will cover with sliding scale insulin (5) HLD (hyperlipidemia) Current Visit: Yes Status: Acute Assessment and Plan: Continue statin DVT Prophylaxis: Lovenox subcutaneous - Time Spent with Patient Total time spent is greater than 50% in coordination of care (as documented) at patient's floor/unit and/or counseling patient: Internal Medicine: Result - Labs CBC & Chem 7: 04/06/18 06:54 04/06/18 06:54 - ABG Interpretation ABG results: PT/INR, D-dimer PT 12.7 Seconds (9.4-12.1) H 04/06/18 06:54 - Impressions Impressions Hip X-Ray 04/06/18 11:41 IMPRESSION: Right hip arthroplasty. D/ / Bobbi Jo MD / Bobbi Jo MD Interpreting Provider: Bobbi Jo MD Consult Discharge Plan - Plan Referrals: Pieter Moore MD [Primary Care Provider] - (1) Fracture of femoral neck, right Qualifiers: Encounter type: initial encounter Qualified Code(s): S72.001A - Fracture of unspecified part of neck of right femur, initial encounter for closed fracture (2) UTI (urinary tract infection) Qualifiers: Encounter type: initial encounter Qualified Code(s): T83.510A - Infection and inflammatory reaction due to cystostomy catheter, initial encounter; N39.0 - Urinary tract infection, site not specified (4) Diabetes Qualifiers: Chronic kidney disease stage: unspecified stage (5) HLD (hyperlipidemia) Qualifiers: Hyperlipidemia type: unspecified Qualified Code(s): E78.5 - Hyperlipidemia, unspecified
[2018-04-07] MEDS: Baclofen 10 MG TABLET PO SCH ×3 (09:31→22:04)
[2018-04-07] MEDS: Insulin LISPRO 300 UNITS/3 ML VIAL SQ SCH ×4 (09:31→22:05)
[2018-04-07] MEDS: DALFAMPRIDINE 10 MG PO SCH ×2 (09:38→22:06)
--- NOTE | 2018-04-07 20:27 | Orthopedics Progress Note ---
Date of Encounter: 04/07/18 Time of Encounter: 20:24 Subjective Principal diagnosis: Right femoral neck fracture Interval history: 04/07/2018. Patient is POD #1 hemiarthroplasty right hip. Patient is extremely pleased with the surgery. States she is having no pain at this time. Vital signs are stable. Afebrile. Dressings clean and dry. Operative foam intact. Distal neurosensory exam normal. Hemoglobin greater than 12. White blood cell count 15 and diminishing. Impression: Postoperative day #1 cemented hemiarthroplasty right hip Recommendation: Patient appears quite stable from an orthopedics point review. Can continue to be weightbearing as tolerated in the right lower extremity with right total hip arthroplasty precautions being followed. From an orthopedics point of view, patient can be discharged to rehabilitation at any time. As long as the Bioclusive dressings intact patient can shower, no wound care is required other than observation. Continue with mechanical and chemical the VTE prophylaxis Patient will need follow-up with me in about 3 weeks' time. Objective Vital signs: Vital Signs Temp Pulse Resp BP Pulse Ox 04/07/18 14:01 98.4 F 76 18 106/57 94 04/07/18 12:09 91 04/07/18 12:08 87 04/07/18 09:51 98 F 79 16 107/53 95 04/07/18 07:11 97.7 F 74 16 105/52 94 04/07/18 04:27 97.8 F 75 18 107/61 97 04/07/18 00:55 98.3 F 79 20 113/82 97 04/06/18 21:30 96 04/06/18 20:50 98.7 F 93 18 110/42 96 Intake and Output 04/07/18 04/07/18 04/07/18 07:59 15:59 23:59 Intake Total 700 / 700 480 / 480 200 / 200 Output Total 600 / 600 1400 / 1400 Balance 100 / 100 480 / 480 -1200 / -1200 Intake: IV Fluids 700 / 700 200 / 200 Cipro Premix 400 MG/200 ML 400 200 / 200 200 / 200 mg In 200 ml @ 200 mls/hr IVPB Q12HR [facility] Rx#:[id number] Vancocin 1,250 MG In 0.9 % 250 / 250 Sodium Chloride 250 ML @ 167 mls/hr IVPB Q12H [facility] Rx#: [id number] Oral 480 / 480 Output: Catheter 600 / 600 1400 / 1400 Other: Meal Lunch Percent of Meal Consumed 80% Weight 75.06 kg Blood Glucose* 183 197 Patient Weight 04/07/18 23:59 Weight 75.06 kg Incision: clean and dry - Labs CBC & BMP: 04/06/18 06:54 04/06/18 06:54 Labs: Abnormal lab results WBC 15.1 K/mcL (4.3-11.1) H 04/06/18 06:54 Neutrophils # 11.2 K/mcL (1.6-8.9) H 04/06/18 06:54 Eosinophils # 0.7 K/mcL (0.0-0.6) H 04/06/18 06:54 PT 12.7 Seconds (9.4-12.1) H 04/06/18 06:54 Sodium 135 mEq/L (136-145) L 04/06/18 06:54 Glucose 181 mg/dL (70-105) H 04/06/18 06:54 POC Glucose 197 mg/dL (70-99) H 04/07/18 16:48 Urine Clarity Turbid (Clear) A 04/05/18 16:05 Urine Protein 100 mg/dL (Neg-Trace) H 04/05/18 16:05 Urine Blood Large (Negative) H 04/05/18 16:05 Ur Leukocyte Esterase Large (Negative) H 04/05/18 16:05 Urine Microscopic RBC 5-15 per hpf (0-3) H 04/05/18 16:05 Urine Microscopic WBC TNTC per hpf (0-3) H 04/05/18 16:05 Ur Squamous Epith Cells Many per lpf (None-Few) H 04/05/18 16:05 Urine Bacteria Many per hpf (None-Few) H 04/05/18 16:05 Consult Discharge Plan - Plan Referrals: Pieter Moore MD [Primary Care Provider] -
[2018-04-08] MEDS: *HR* HYDROcodone/Acet 5/325 mg TABLET PO PRN ×2 (01:53→13:55)
[2018-04-08] MEDS: *HR* Enoxaparin 30 MG/0.3 ML SYRINGE SQ SCH ×2 (05:43→16:41)
[2018-04-08] MEDS: Insulin LISPRO 300 UNITS/3 ML VIAL SQ SCH ×3 (07:42→16:41)
[2018-04-08] MEDS: Baclofen 10 MG TABLET PO SCH ×3 (07:44→20:42)
[2018-04-08] MEDS: DALFAMPRIDINE 10 MG PO SCH ×2 (07:44→21:21)
[2018-04-08 11:51] LABS: Basophils # 0.1 K/mcL (0.0-0.2); Basophils % 0.5 %; Eosinophils # 0.6 K/mcL (0.0-0.6); Eosinophils % 3.1 %; Hematocrit 34.1 % (35.3-44.9); Hemoglobin 11.2 g/dL (11.5-15.4); Immature Granulocytes % 0.7 % (0-4); Lymphocytes % 16.6 %; Mean Corpuscular HGB Conc 32.8 g/dL (31.6-35.5); Mean Corpuscular Hemoglobin 30.9 pg (28.0-33.3); Mean Corpuscular Volume 94.2 fL (83.0-100.0); Mean Platelet Volume 11.2 fL (9.4-12.4); Monocytes # 1.8 K/mcL (0.0-1.3); Monocytes % 9.9 %; Neutrophils # 12.4 K/mcL (1.6-8.9); Platelet Count 210 K/mcL (140-400); Red Blood Count 3.62 M/mcL (3.82-4.97); Red Cell Distribution Width 12.6 % (11.5-14.5); Segmented Neutrophils % 69.2 %
[2018-04-08 12:09] LABS: BUN/Creatinine Ratio 22 (6-26); Blood Urea Nitrogen 20 mg/dL (8-23); Calcium 8.8 mg/dL (8.6-10.3); Carbon Dioxide 27 mEq/L (23-29); Chloride 104 mEq/L (98-107); Glucose 179 mg/dL (70-105); Osmolality,Calculated 291 (280-300); Potassium 4.2 mEq/L (3.5-5.1); Sodium 137 mEq/L (136-145); eGFR For Non-African Americans > 60 (> 60)
--- NOTE | 2018-04-08 17:37 | Internal Med Progress Note ---
Hospitalist Progress Note - Encounter Date of Encounter: 04/08/18 Time of Encounter: 11:00 - Subjective Interval History: Patient is a 67-year-old female with past medical history significant for multiple sclerosis with frequent falls who presents to the ER on 04/05/18 after right hip pain after mechanical fall. Patient is POD#2 Cemented hemiarthroplasty right hip Patient without any improvement in leukocytosis on IV antibiotics for suspected urinary tract infection. Urine cultures have been repeated and blood cultures ordered as well. - Exam Vitals: Temp Pulse Resp BP Pulse Ox 98.8 F 76 18 103/60 96 04/08/18 15:17 04/08/18 15:17 04/08/18 15:17 04/08/18 15:17 04/08/18 15:17 Exam: Gen.: Nonacute distress, alert and oriented 3 ENT: Mucosal membranes moist Respiratory: Lungs are clear to auscultation bilaterally without any wheezing rhonchi or rales Cardiovascular: Normal S1 and S2 regular rate rhythm no murmurs rubs or gallops Abdomen: Soft, nontender and nondistended with positive bowel sounds Extremities: No lower extremity edema Skin: Normal color - Assessment and Plan (1) UTI (urinary tract infection) Current Visit: Yes Status: Acute Assessment and Plan: Patient without improvement in leukocytosis: WBC 23-> 15.1->17.9 Urinalysis noted to have large leukoesterase , white blood cells too numerous to count and many bacteria. Urine Cultures will be sent today as well as blood cultures Will continue day 4 of IV Cipro (2) Fracture of femoral neck, right Current Visit: Yes Status: Acute Assessment and Plan: On imaging patient found to have subcapital right femoral neck fracture appears to be pathologic, concerning for metastatic disease Patient now POD#2 cemented hemiarthroplasty of the right hip Patient will be discharged to nursing home facility for strengthening rehabilitation after improvement in leukocytosis above (3) Multiple sclerosis Current Visit: Yes Status: Acute Assessment and Plan: Patient not in exacerbation Continue to monitor (4) Diabetes Current Visit: Yes Status: Acute Assessment and Plan: Will cover with sliding scale insulin (5) HLD (hyperlipidemia) Current Visit: Yes Status: Acute Assessment and Plan: Continue statin DVT Prophylaxis: Lovenox subcutaneous - Time Spent with Patient Total time spent is greater than 50% in coordination of care (as documented) at patient's floor/unit and/or counseling patient: Internal Medicine: Result - Labs CBC & Chem 7: 04/08/18 11:35 04/08/18 11:35 Labs: Short CBC 04/08/18 Range/Units 11:35 WBC 17.9 H (4.3-11.1) K/mcL Hgb 11.2 L (11.5-15.4) g/dL Hct 34.1 L (35.3-44.9) % Plt Count 210 (140-400) K/mcL Neutrophils # 12.4 H (1.6-8.9) K/mcL BMP 04/08/18 11:35 Sodium 137 Potassium 4.2 Chloride 104 Carbon Dioxide 27 BUN 20 Creatinine 0.93 Glucose 179 H Calcium 8.8 - ABG Interpretation ABG results: PT/INR, D-dimer PT 12.7 Seconds (9.4-12.1) H 04/06/18 06:54 Consult Discharge Plan - Plan Referrals: Pieter Moore MD [Primary Care Provider] - _ (1) UTI (urinary tract infection) Qualifiers: Encounter type: initial encounter Qualified Code(s): T83.510A - Infection and inflammatory reaction due to cystostomy catheter, initial encounter; N39.0 - Urinary tract infection, site not specified (2) Fracture of femoral neck, right Qualifiers: Encounter type: initial encounter Qualified Code(s): S72.001A - Fracture of unspecified part of neck of right femur, initial encounter for closed fracture (4) Diabetes Qualifiers: Chronic kidney disease stage: unspecified stage (5) HLD (hyperlipidemia) Qualifiers: Hyperlipidemia type: unspecified Qualified Code(s): E78.5 - Hyperlipidemia, unspecified
--- NOTE | 2018-04-08 20:43 | Orthopedics Progress Note ---
Date of Encounter: 04/08/18 Time of Encounter: 20:41 Subjective Principal diagnosis: Right femoral neck fracture Interval history: 04/07/2018. Patient is POD #1 hemiarthroplasty right hip. Patient is extremely pleased with the surgery. States she is having no pain at this time. Vital signs are stable. Afebrile. Dressings clean and dry. Operative foam intact. Distal neurosensory exam normal. Hemoglobin greater than 12. White blood cell count 15 and diminishing. Impression: Postoperative day #1 cemented hemiarthroplasty right hip Recommendation: Patient appears quite stable from an orthopedics point review. Can continue to be weightbearing as tolerated in the right lower extremity with right total hip arthroplasty precautions being followed. From an orthopedics point of view, patient can be discharged to rehabilitation at any time. As long as the Bioclusive dressings intact patient can shower, no wound care is required other than observation. Continue with mechanical and chemical the VTE prophylaxis Patient will need follow-up with me in about 3 weeks' time. 04/08/2018. Patient POD #2 hemiarthroplasty right hip. Patient doing relatively well. Little to no pain. Vital signs stable. Patient is afebrile. Dressings remained clean and dry. Hemoglobin is 11+. White blood cell count remains elevated at 17.9. Urine culture results from admission are not available or were not completed. Recheck urine culture is pending. Impression: POD #2 cemented hemiarthroplasty right hip Persistent leukocytosis, suspected urinary tract infection with probable resistant organism Recommendation: Orthopedic status remained stable. Continue with rehabilitation with plan as above. Awaiting urine culture results to determine antibiotic use. Objective Vital signs: Vital Signs Temp Pulse Resp BP Pulse Ox 04/08/18 17:38 98.4 F 77 18 115/60 100 04/08/18 15:17 98.8 F 76 18 103/60 96 04/08/18 11:04 97.9 F 64 18 117/88 94 04/08/18 06:28 97.6 F 67 18 118/71 95 04/07/18 23:38 98.2 F 76 16 114/61 95 Intake and Output 04/08/18 04/08/18 04/08/18 07:59 15:59 23:59 Intake Total 200 / 200 240 / 240 Output Total 740 / 740 100 / 100 Balance -540 / -540 140 / 140 Intake: IV Fluids 200 / 200 Cipro Premix 400 MG/200 ML 400 200 / 200 mg In 200 ml @ 200 mls/hr IVPB Q12HR [facility] Rx#:[id number] Oral 240 / 240 Output: Catheter 740 / 740 100 / 100 Other: Meal Breakfast Percent of Meal Consumed 95% Weight 74.8 kg Blood Glucose* 154 181 264 Patient Weight 04/08/18 23:59 Weight 74.8 kg Incision: clean and dry - Labs CBC & BMP: 04/08/18 11:35 04/08/18 11:35 Labs: Abnormal lab results WBC 17.9 K/mcL (4.3-11.1) H 04/08/18 11:35 RBC 3.62 M/mcL (3.82-4.97) L 04/08/18 11:35 Hgb 11.2 g/dL (11.5-15.4) L 04/08/18 11:35 Hct 34.1 % (35.3-44.9) L 04/08/18 11:35 Neutrophils # 12.4 K/mcL (1.6-8.9) H 04/08/18 11:35 Monocytes # 1.8 K/mcL (0.0-1.3) H 04/08/18 11:35 PT 12.7 Seconds (9.4-12.1) H 04/06/18 06:54 Glucose 179 mg/dL (70-105) H 04/08/18 11:35 POC Glucose 253 mg/dL (70-99) H 04/07/18 20:33 Urine Clarity Turbid (Clear) A 04/05/18 16:05 Urine Protein 100 mg/dL (Neg-Trace) H 04/05/18 16:05 Urine Blood Large (Negative) H 04/05/18 16:05 Ur Leukocyte Esterase Large (Negative) H 04/05/18 16:05 Urine Microscopic RBC 5-15 per hpf (0-3) H 04/05/18 16:05 Urine Microscopic WBC TNTC per hpf (0-3) H 04/05/18 16:05 Ur Squamous Epith Cells Many per lpf (None-Few) H 04/05/18 16:05 Urine Bacteria Many per hpf (None-Few) H 04/05/18 16:05 Consult Discharge Plan - Plan Referrals: Pieter Moore MD [Primary Care Provider] -
[2018-04-09] MEDS: *HR* HYDROcodone/Acet 5/325 mg TABLET PO PRN ×2 (02:19→15:13)
[2018-04-09] MEDS: Insulin LISPRO 300 UNITS/3 ML VIAL SQ SCH ×4 (03:15→17:05)
[2018-04-09] MEDS: *HR* Enoxaparin 30 MG/0.3 ML SYRINGE SQ SCH (06:20)
[2018-04-09] MEDS: DALFAMPRIDINE 10 MG PO SCH (08:09)
[2018-04-09] MEDS: Baclofen 10 MG TABLET PO SCH ×2 (08:09→15:13)
--- NOTE | 2018-04-09 09:25 | Internal Med Progress Note ---
Hospitalist Progress Note - Encounter Date of Encounter: 04/09/18 - Subjective Interval History: Patient is a 67-year-old female with past medical history significant for multiple sclerosis with frequent falls who presents to the ER on 04/05/18 after right hip pain after mechanical fall. Patient is POD#3 Cemented hemiarthroplasty right hip Patient with persistent leukocytosis on IV antibiotics; urine/blood cultures pending Patient will be discharged to nursing home facility for strengthening and conditioning when she is medically ready - Exam Vitals: Temp Pulse Resp BP Pulse Ox 98.7 F 68 16 119/78 98 04/09/18 06:50 04/09/18 06:50 04/09/18 06:50 04/09/18 06:50 04/09/18 06:50 - Assessment and Plan (1) UTI (urinary tract infection) Current Visit: Yes Status: Acute Assessment and Plan: Patient without improvement in leukocytosis: WBC 23-> 15.1->17.9 Urinalysis noted to have large leukoesterase , white blood cells too numerous to count and many bacteria. Urine/ blood cultures pending Will continue day 5 of IV Cipro (2) Fracture of femoral neck, right Current Visit: Yes Status: Acute Assessment and Plan: On imaging patient found to have subcapital right femoral neck fracture appears to be pathologic, concerning for metastatic disease Patient now POD#3 cemented hemiarthroplasty of the right hip Patient will be discharged to nursing home facility for strengthening rehabilitation after improvement in leukocytosis above (3) Multiple sclerosis Current Visit: Yes Status: Acute Assessment and Plan: Patient not in exacerbation Continue to monitor (4) Diabetes Current Visit: Yes Status: Acute Assessment and Plan: Will cover with sliding scale insulin (5) HLD (hyperlipidemia) Current Visit: Yes Status: Acute Assessment and Plan: Continue statin DVT Prophylaxis: Lovenox subcutaneous - Time Spent with Patient Total time spent is greater than 50% in coordination of care (as documented) at patient's floor/unit and/or counseling patient: Internal Medicine: Result - Labs CBC & Chem 7: 04/08/18 11:35 04/08/18 11:35 Labs: Short CBC 04/08/18 Range/Units 11:35 WBC 17.9 H (4.3-11.1) K/mcL Hgb 11.2 L (11.5-15.4) g/dL Hct 34.1 L (35.3-44.9) % Plt Count 210 (140-400) K/mcL Neutrophils # 12.4 H (1.6-8.9) K/mcL BMP 04/08/18 11:35 Sodium 137 Potassium 4.2 Chloride 104 Carbon Dioxide 27 BUN 20 Creatinine 0.93 Glucose 179 H Calcium 8.8 - ABG Interpretation ABG results: PT/INR, D-dimer PT 12.7 Seconds (9.4-12.1) H 04/06/18 06:54 Consult Discharge Plan - Plan Referrals: Pieter Moore MD [Primary Care Provider] - (1) UTI (urinary tract infection) Qualifiers: Encounter type: initial encounter Qualified Code(s): T83.510A - Infection and inflammatory reaction due to cystostomy catheter, initial encounter; N39.0 - Urinary tract infection, site not specified (2) Fracture of femoral neck, right Qualifiers: Encounter type: initial encounter Qualified Code(s): S72.001A - Fracture of unspecified part of neck of right femur, initial encounter for closed fracture (4) Diabetes Qualifiers: Chronic kidney disease stage: unspecified stage (5) HLD (hyperlipidemia) Qualifiers: Hyperlipidemia type: unspecified Qualified Code(s): E78.5 - Hyperlipidemia, unspecified
[2018-04-09 10:14] LABS: Basophils # 0.1 K/mcL (0.0-0.2); Basophils % 0.7 %; Eosinophils # 0.9 K/mcL (0.0-0.6); Eosinophils % 6.6 %; Hematocrit 35.7 % (35.3-44.9); Hemoglobin 11.6 g/dL (11.5-15.4); Immature Granulocytes % 0.9 % (0-4); Lymphocytes # 3.2 K/mcL (0.6-4.6); Lymphocytes % 23.2 %; Mean Corpuscular HGB Conc 32.5 g/dL (31.6-35.5); Mean Corpuscular Hemoglobin 30.4 pg (28.0-33.3); Mean Corpuscular Volume 93.5 fL (83.0-100.0); Mean Platelet Volume 10.9 fL (9.4-12.4); Monocytes # 1.3 K/mcL (0.0-1.3); Monocytes % 9.3 %; Neutrophils # 8.2 K/mcL (1.6-8.9); Platelet Count 225 K/mcL (140-400); Red Blood Count 3.82 M/mcL (3.82-4.97); Red Cell Distribution Width 12.7 % (11.5-14.5); Segmented Neutrophils % 59.3 %
[2018-04-09 10:34] LABS: BUN/Creatinine Ratio 18 (6-26); Blood Urea Nitrogen 16 mg/dL (8-23); Calcium 8.9 mg/dL (8.6-10.3); Carbon Dioxide 27 mEq/L (23-29); Chloride 102 mEq/L (98-107); Glucose 247 mg/dL (70-105); Osmolality,Calculated 305 (280-300); Potassium 4.5 mEq/L (3.5-5.1); Sodium 143 mEq/L (136-145); eGFR For Non-African Americans > 60 (> 60)
[2018-04-09 17:11] VITALS: BP 119/68
--- NOTE | 2018-04-09 17:21 | Physician Discharge Referral ---
ExtendedCare Referral Info Institutional Level of Care: Skilled - Diagnosis (1) UTI (urinary tract infection) Status: Acute (2) Fracture of femoral neck, right Status: Acute (3) Multiple sclerosis Status: Acute (4) Diabetes Status: Acute (5) HLD (hyperlipidemia) Status: Acute - Transfer Medications Prescriptions: HYDROcodone/Acet 5/325 mg [[place] 5-325 mg] 1 tab PO Q8HR PRN 3 Days #9 tablet PRN Reason: Breakthrough Pain Enoxaparin [Lovenox] 30 mg SQ Q12HCO 14 Days #28 syringe Aspirin 325 mg PO DAILY 30 Days #30 tablet Home Medications: Albuterol Sulfate [Proair Hfa] 2 puff IH Q4H PRN 01/30/16 [History] Baclofen [Lioresal] 10 mg PO BID 01/30/16 [History] Calcium Carb,Cit/D3/Phytostrol [Citracal D + Heart Health Tab] 1 tab PO DAILY 01/30/16 [History] Cholecalciferol (D-3) [Vitamin D] 1,000 unit PO BID 01/30/16 [History] Citalopram Hydrobromide [Celexa] 40 mg PO DAILY 01/30/16 [History] Dalfampridine [Ampyra] 10 mg PO BID 01/30/16 [History] Glimepiride [Amaryl] 4 mg PO BIDWM 01/30/16 [History] Ibuprofen [Advil] 800 mg PO DAILY PRN 01/30/16 [History] Multivitamin [Multivitamins] 1 tab PO DAILY 01/30/16 [History] Propranolol HCl 80 mg PO TID 01/30/16 [History] SUMAtriptan Succinate [Imitrex] 100 mg PO DAILY PRN 01/30/16 [History] Zolpidem [Ambien] 5 mg PO HS PRN 01/30/16 [History] Baclofen [Lioresal] 10 mg PO DAILY PRN 04/07/18 [History] Lovastatin [Mevacor] 40 mg PO HS 04/07/18 [History] Metformin HCl [Metformin ER Osmotic] 500 mg PO BIDWM 04/07/18 [History] Aspirin 325 mg PO DAILY 30 Days #30 tablet 04/09/18 [Rx] Enoxaparin [Lovenox] 30 mg SQ Q12HCO 14 Days #28 syringe 04/09/18 [Rx] HYDROcodone/Acet 5/325 mg [[place] 5-325 mg] 1 tab PO Q8HR PRN 3 Days #9 tablet 04/09/18 [Rx] Allergies/Adverse Reactions: Allergy/AdvReac Type Severity Reaction Status Date / Time Cephalosporins Allergy Rash Verified 01/30/16 09:48 clindamycin Allergy Rash Verified 04/05/18 13:22 Penicillins Allergy Rash Verified 01/30/16 09:48 Sulfa (Sulfonamide Allergy Photosensit Verified 01/30/16 09:48 Antibiotics) ivity - Respiratory Orders Smoking Cessation: Smoking cessation has been advised. For more information, call the [place] Tobacco Quit Line at 3-049-GMGV-NOW. CERTIFICATION: I certify that the transfer of the above named patient to an Extended Care Facility is necessary for the continuing treatment of the diagnosis listed. The above information is true and accurate reflection of patient's current condition. Confidential - Redisclosure prohibited without a patient's written consent.
--- NOTE | 2018-04-09 17:21 | Discharge Summary ---
Orders not resulted at time of discharge: Pending orders 04/05/18 14:08 EKG [ECG 12 lead ECG] [ECG] Stat 04/06/18 10:18 Surgical Pathology Specimen Routine 04/08/18 15:51 Culture,Blood [BC] Routine Date of Encounter: 04/09/18 Time of Encounter: 11:00 - Discharge Diagnosis (1) UTI (urinary tract infection) Priority: Primary Status: Acute Qualifiers: Encounter type: initial encounter Qualified Code(s): T83.510A - Infection and inflammatory reaction due to cystostomy catheter, initial encounter; N39.0 - Urinary tract infection, site not specified (2) Fracture of femoral neck, right Priority: Primary Status: Acute Qualifiers: Encounter type: initial encounter Qualified Code(s): S72.001A - Fracture of unspecified part of neck of right femur, initial encounter for closed fracture (3) Multiple sclerosis Priority: Secondary Status: Acute (4) Diabetes Priority: Secondary Status: Acute Qualifiers: Chronic kidney disease stage: unspecified stage Qualified Code(s): E08.22 - Diabetes mellitus due to underlying condition with diabetic chronic kidney disease; Z79.4 - retirement (current) use of insulin (5) HLD (hyperlipidemia) Priority: Secondary Status: Acute Qualifiers: Hyperlipidemia type: unspecified Qualified Code(s): E78.5 - Hyperlipidemia, unspecified Hospital course: Patient is a 67-year-old female with past medical history significant for diabetes, hyperlipidemia and mood disorder and multiple sclerosis with frequent falls who presents to the ER on 04/05/18 after right hip pain after mechanical fall. She reports after getting up this morning and walking to get her glasses she turned to her right and lost her balance falling on her right hip with immediate sharp pain. Patient was unable to ambulate and family assisting her to car to bring her into the ER for evaluation. In the ER, imaging showed subcapital right femoral neck fracture appears to be pathologic, concerning for metastatic disease; head CT with no acute intracranial abnormalities. Patient was also noted to have significant leukocytosis on labs with WBC of 23; urinalysis noted to have large leukoesterase , white blood cells too numerous to count and many bacteria. Patient will be admitted to the medical surgical floor for surgical repair of right femoral neck fracture in addition to management for urinary tract infection. During patients hospital stay orthopedics consulted and patient status post Cemented hemiarthroplasty right hip. Patient also finished a course of IV antibiotics for UTI. She is medically stable to be discharged to detention facility for strengthening rehabilitation. - Time Spent with Patient Total time spent providing and/or coordinating discharge services: Less than 30 minutes - Discharge Medications Prescriptions: HYDROcodone/Acet 5/325 mg [[place] 5-325 mg] 1 tab PO Q8HR PRN 3 Days #9 tablet PRN Reason: Breakthrough Pain Enoxaparin [Lovenox] 30 mg SQ Q12HCO 14 Days #28 syringe Aspirin 325 mg PO DAILY 30 Days #30 tablet Home Medications: Albuterol Sulfate [Proair Hfa] 2 puff IH Q4H PRN 01/30/16 [History] Baclofen [Lioresal] 10 mg PO BID 01/30/16 [History] Calcium Carb,Cit/D3/Phytostrol [Citracal D + Heart Health Tab] 1 tab PO DAILY 01/30/16 [History] Cholecalciferol (D-3) [Vitamin D] 1,000 unit PO BID 01/30/16 [History] Citalopram Hydrobromide [Celexa] 40 mg PO DAILY 01/30/16 [History] Dalfampridine [Ampyra] 10 mg PO BID 01/30/16 [History] Glimepiride [Amaryl] 4 mg PO BIDWM 01/30/16 [History] Ibuprofen [Advil] 800 mg PO DAILY PRN 01/30/16 [History] Multivitamin [Multivitamins] 1 tab PO DAILY 01/30/16 [History] Propranolol HCl 80 mg PO TID 01/30/16 [History] SUMAtriptan Succinate [Imitrex] 100 mg PO DAILY PRN 01/30/16 [History] Zolpidem [Ambien] 5 mg PO HS PRN 01/30/16 [History] Baclofen [Lioresal] 10 mg PO DAILY PRN 04/07/18 [History] Lovastatin [Mevacor] 40 mg PO HS 04/07/18 [History] Metformin HCl [Metformin ER Osmotic] 500 mg PO BIDWM 04/07/18 [History] Aspirin 325 mg PO DAILY 30 Days #30 tablet 04/09/18 [Rx] Enoxaparin [Lovenox] 30 mg SQ Q12HCO 14 Days #28 syringe 04/09/18 [Rx] HYDROcodone/Acet 5/325 mg [[place] 5-325 mg] 1 tab PO Q8HR PRN 3 Days #9 tablet 04/09/18 [Rx] Allergies/Adverse Reactions: Allergy/AdvReac Type Severity Reaction Status Date / Time Cephalosporins Allergy Rash Verified 01/30/16 09:48 clindamycin Allergy Rash Verified 04/05/18 13:22 Penicillins Allergy Rash Verified 01/30/16 09:48 Sulfa (Sulfonamide Allergy Photosensit Verified 01/30/16 09:48 Antibiotics) ivity Date of admission: 04/05/18 18:23 Primary care physician: Pieter Moore MD Consults: 04/05/18 17:28 Consult to Side Stitching Machine Operator [CONS] Routine Reason for SW Consult: discharge planning/ advance directives 04/06/18 11:41 Consult to Occupational Therapy [CONS] Routine Comment: Evaluate, develop and implement POC Reason for Consult: adl Does patient have active BEDREST order?: No Is patient medically & hemodynamically stable?: Yes Consult to Physical Therapy [CONS] Routine Comment: Evaluate, develop and implement POC Reason for Consult: fx Does patient have active BEDREST order?: No Is patient medically & hemodynamically stable?: Yes Consult to Side Stitching Machine Operator [CONS] Routine Reason for SW Consult: dc - Constitutional Vitals: Temp Pulse Resp BP Pulse Ox 98.7 F 78 16 119/68 96 04/09/18 14:00 04/09/18 14:00 04/09/18 14:00 04/09/18 14:00 04/09/18 14:00 Exam: Gen.: Nonacute distress, alert and oriented 3 Skin: Normal color - Patient Status Disposition: Transfer SNF Condition: Good - Discharge Instructions Follow Up With: Pieter Moore MD [Primary Care Provider] -
== END 2018-04-09 19:24 | DRG 470 ==
LOC: EMEROOARM 13:13 → 3NENU 13:13 → SUATTDRO 18:23
PROVIDERS: ADMIT Student in an Organized Health Care Education/Training Program; ATTEND Hospitalist